=== PATIENT | male | born 1960 | race African-American/Black ===

== ENCOUNTER 2016-07-05 12:28 | Emergency (ER) | payer MEDICARE, BC ==
[~2016-07-05] VITALS: Wt 95.0 kg
[~2016-07-05 12:28] MED LIST: CETI10CA PO; CITROMA PO; DOCU-144 PO; ESCI10TA PO; HYDR-902 PO; IBUP800T25 PO; MAG355OR15 PO
[2016-07-05] MEDS ORDERED: AZIT250T94 PO (14:31)
[2016-07-05] MEDS ORDERED: IBUP-1542 PO (14:32)
--- NOTE | 2016-07-05 15:22 | ERD ---
ER Documentation Chief Complaint Date/Time DATE: 07/05/16 TIME: 15:19 Chief Complaint flu like symptoms for the past 2 days. no distress. no sob HPI She is a 55-year-old male who presents to the ED with 1 day of body aches, sore throat, runny nose. He states that he took amoxicillin last week since he had the remaining of an old prescription. However he states that he has a sore throat and he would like antibiotics before his symptoms get worse. He denies dizziness, neck pain or stiffness. Denies blurry vision. Denies chest pain, cough, shortness of breath or difficulty breathing. Denies abdominal pain, nausea, vomiting, diarrhea. Has not taken any other medication for symptoms. Denies leg pain or swelling. Denies recent travel, last surgery was 15 months ago. ROS All systems reviewed and are negative except as per history of present illness. Medications Home Meds Active Scripts Ibuprofen* (Motrin*) 600 Mg Tab, 600 MG PO Q6, #30 TAB Prov:KIMBERLY SANTAMARIA PA-C 07/05/16 Azithromycin* (Zithromax*) 250 Mg Tablet, 250 MG PO .ZPACK DIRECTED, #6 TAB TAKE 500 MG (2 TABS) THE FIRST DAY THEN 250 MG (1 TAB) DAYS 2-5 Prov:KIMBERLY SANTAMARIA PA-C 07/05/16 Hydrocodone/Acetaminophen (Hobart 10-325 Tablet) 1 Each Tablet, 1 TAB PO Q6H Y for PAIN, #15 TAB Prov:ANNA LINDSAY PA-C 03/30/16 Ibuprofen* (Motrin*) 800 Mg Tab, 800 MG PO Q6, #30 TAB Prov:ANNA LINDSAY PA-C 03/30/16 Mag Hydrox/Al Hydrox/Simeth (Maalox Ms Liquid) 360 Ml Oral.susp, 2 TSP PO TID, # 24 OZ Prov:UMAIR CARDENAS MD 11/16/15 Magnesium Citrate* (Citroma*) 300 Ml Soln, 300 ML PO ONCE for CONSTIPATION, #1 BOTTLE Prov:UMAIR CARDENAS MD 11/16/15 Docusate Sodium* (Colace*) 100 Mg Capsule, 100 MG PO BID for CONSTIPATION, #30 CAP Prov:UMAIR CARDENAS MD 11/16/15 Cetirizine Hcl* (Zyrtec*) 10 Mg Capsule, 10 MG PO DAILY, #30 TAB.CHEW Prov: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 ) Anesthesia Reaction: No Hx Neurological Disorder: No Hx Respiratory Disorders: No Hx Cardiac Disorders: No Hx Psychiatric Problems: No Hx Miscellaneous Medical Probl: No Hx Alcohol Use: No Hx Substance Use: No Hx Tobacco Use: No FmHx Family History: No coronary disease, No diabetes, No other Physical Exam Vitals Vital Signs Date Time Temp Pulse Resp B/P Pulse Ox O2 Delivery O2 Flow Rate FiO2 07/05/16 13:10 98.1 95 20 170/89 98 Physical Exam GENERAL: Well-developed, well-nourished male. Appears in no acute distress. HEAD: Normocephalic, atraumatic. EYES: Pupils are equally reactive bilaterally. EOMs grossly intact. No conjunctival erythema. ENT: Moist mucous membranes. No uvula deviation. No kissing tonsils. No exudates. NECK: Supple. No lymphadenopathy or thyromegaly. No meningismus. negative kernig. negative brudinski. LUNG: Clear to auscultation bilaterally. No rhonchi, wheezing, rales or coarse breath sounds. HEART: Regular rate and rhythm. No murmurs, rubs or gallops. Extremities: Equal pulses bilaterally. No peripheral clubbing, cyanosis or edema. No unilateral leg swelling. NEUROLOGIC: Alert and oriented. Moving all four extremities. 5/5 strength in all extremities. Normal speech. Steady gait. SKIN: Normal color. Warm and dry. No rashes or lesions. Capillary refill < 2 seconds Procedures/MDM ER COURSE: I kept the patient and/or family informed of laboratory and diagnostic imaging results throughout the emergency room course. MEDICAL DECISION MAKING: This is a 55-year-old male who presents with sore throat, runny nose and body aches 2 days,. Vital signs were reviewed. Patient is afebrile. Patient is not hypoxic. Patient is not toxic or ill-appearing. Patient likely has URI of viral etiology. However patient is requesting antibiotics. I will give patient antibiotics however I discussed with patient that he should start the antibiotics in 2 days if symptoms worsen. Low suspicion for pneumonia, PE, pneumothorax, ACS, epiglottitis, obstruction, TB, pertussis, meningitis, sepsis. Low suspicion for peritonsillar abscess, strep pharyngitis, mononucleosis, dental abscess DISCHARGE: At this time, patient is stable for discharge and outpatient management with no new complaints during the ER course. Patient was sent home with azithromycin and ibuprofen. A note for school was also given.. Patient will be discharged home with instructions to recheck for new or worsening symptoms such as fever, nausea, weakness, LOC and to follow up with primary care in the next 1-2 days. Patient was advised to return to the ER for any new or worsening symptoms. Plan was discussed and patient and/or family understands and agrees. Home instructions were given. Departure Diagnosis: Primary Impression: URI, acute Condition: Stable Patient Instructions: When You Have a Sore Throat Additional Instructions: Call your primary care doctor TOMORROW for an appointment during the next 1-2 days.See the doctor sooner or return here if your condition worsens before your appointment time. KIMBERLY SANTAMARIA PA-C Jul 05, 2016 15:22
== END 2016-07-05 14:33 | disposition home or self-care (01) ==
LOC: FTE 12:28 → E/R 14:33
DX: J06.9 Acute upper respiratory infection, unspecified (principal)
CPT/HCPCS: 99283

== ENCOUNTER 2017-01-15 15:59 | Emergency (ER) | payer BC, MEDICARE ==
[~2017-01-15] VITALS: Ht 175.3 cm; Wt 88.5 kg
[~2017-01-15 15:59] MED LIST changes: +AZIT250T94 PO; +IBUP-1542 PO
[2017-01-15 16:55] VITALS: Ht 175.3 cm; Wt 88.5 kg
== END 2017-01-15 21:34 | disposition left against medical advice (07) ==
LOC: FTE 15:59
DX: Z53.21 Procedure and treatment not carried out due to patient leaving prior to being seen by health care provider (principal)

== ENCOUNTER 2018-01-19 02:35 | Emergency (ER) | END 2018-01-19 05:30 | disposition home or self-care (01) ==